=== PATIENT | male | born 1965 | race Caucasian/White ===

== ENCOUNTER 2016-06-16 15:56 | Day surgery (SDC) | payer BC ==
--- NOTE | ~2016-06-16 | OP ---
Record Of Operation [facility] [address] [place]. 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 PROCEDURE: Incision and drainage with placement of seton. DESCRIPTION OF PROCEDURE: The patient was taken to the operating room, induced under MAC anesthetic, in the left lateral decubitus position, prepped and draped in the usual sterile fashion. A pudendal nerve block was placed with a total of 10 mL of TAP block solution. The patient already had a small I and D site at the midline of the perineal body. A mass could be palpated between this area and the anorectal ring. An 18 gauge needle was used with multiple passes, trying to aspirate fluid. This had been done in the office and minimal fluid was retrieved. Although all of these passes were done in a fanning motion through the mass, but the thought was that the pus was actually a solid pus as a phlegmon rather than a true abscess. Anoscopy was performed using first a small, then medium lighted [place] retractor. The crypts of Morgagni were visualized circumferentially. There were appeared to be no evidence of inflammation. The patient's prior scar at the posterior midline was evidence, but no evidence of opening or puss. So palpation of this area, the prior made incision was elongated for a total of 1 cm. The cavity was opened using Whitney clamp into the ischiorectal fossa, which retracted back to the posterior midline. Again, on visualization of the posterior midline, it was unable to express any puss. It was soft. No evidence of fluctuance or mass. And so therefore, the seton was brought out at the left lateral aspect of the ischiorectal fossa in order to drain the tract. The patient had had a prior abscess in the sulcation as a half-horseshoe. At this point, he was clean and dried followed by two 4 x 4 , peripad, and mesh panties. Of note, the seton was placed with the vessel loop and was tied x3 with silk suture. He tolerated the procedure well. MEGAN/NIKOS Darrel Means M.D. / [id number] CC: Jennifer Castrejon M.D.
[~2016-06-16 15:56] MED LIST: FISH-EPA1000 MG PO; LOPID6 PO; METAMUCIL CAN7 OZ PO; METPAKSF PO; [UNRECOGNIZED DRUG - REMARK]
[2016-06-16 17:11] LABS: BASOPHILS 0.1 %; BASOPHILS ABSOLUTE 0.01 10/3/uL (0.0-0.16); EOSINOPHILS 1.4 %; EOSINOPHILS ABSOLUTE 0.13 10/3/uL (0.0-0.53); HEMATOCRIT 47.4 % (40.0-51.0); HEMOGLOBIN 16.5 g/dL (13.6-17.8); IMMATURE GRANULOCYTES 0.8 %; IMMATURE GRANULOCYTES ABSOLUTE 0.08 10/3/uL (0.0-0.11); LYMPHOCYTES 26.5 %; LYMPHOCYTES ABSOLUTE 2.55 10/3/uL (0.67-4.30); MEAN CORPUS HGB CONC 34.8 g/dL (32.0-36.0); MEAN CORPUSCULAR HEMOGLOB 30.8 pg (26.0-34.0); MEAN CORPUSCULAR VOLUME 88.6 fL (80-100); MEAN PLATELET VOLUME 10.2 fL (9.2-13.0); MONOCYTES 8.9 %; MONOCYTES ABSOLUTE 0.86 10/3/uL (0.21-1.20); NEUTROPHILS 62.3 %; NEUTROPHILS ABSOLUTE 5.98 10/3/uL (2.02-8.40); PLATELET COUNT 283 10/3/uL (150-400); RBC DISTRIBUTION WIDTH 12.6 % (12.0-16.0); RED CELL COUNT 5.35 10/6/uL (4.7-6.1); WHITE BLOOD CELLS 9.6 10/3/uL (4.5-10.5)
[2016-06-16 17:15] LABS: MANUAL DIFF NO %
[2016-06-16 17:21] LABS: BUN (BLOOD UREA NITROGEN) 9 MG/DL (6-23); CALCIUM, SERUM 8.8 MG/DL (8.5-10.4); CHLORIDE, SERUM 99 MMOL/L (96-112); CO2 (CARBON DIOXIDE) 29 MMOL/L (24-34); CREATININE 0.86 MG/DL (0.70-1.30); GFR AFRICAN AMERICAN 115 ML/MIN (>=60); GFR NON AFRICAN AMERICAN 99 ML/MIN (>=60); GLUCOSE, SERUM 88 MG/DL (60-99); POTASSIUM, SERUM 3.8 MMOL/L (3.5-5.3); SODIUM, SERUM 137 MMOL/L (135-148)
== END 2016-06-16 19:30 | disposition home or self-care (01) ==
LOC: SDC 15:56
PROVIDERS: Surgery
PROC: 0D9QXZZ Drainage of Anus, External Approach (ICD-10-PCS; principal; 2016-06-16 16:45)
DX: K61.0 Anal abscess (principal); E78.00 Pure hypercholesterolemia, unspecified; Z79.899 Other long term (current) drug therapy
CPT/HCPCS: 80048; 85025; 93005; A9270-GY; J1170; J1885; J2250; J2795; J3010